=== PATIENT | male | born 1990 | race Two or more races ===

== ENCOUNTER 2016-12-20 16:07 | Emergency (ER) | payer OTHER | END 2016-12-20 18:54 | disposition left against medical advice (07) | LOC: ER 18:44 | DX: S61.419A Laceration without foreign body of unspecified hand, initial encounter (principal); X58.XXXA Exposure to other specified factors, initial encounter; Y93.89 Activity, other specified; Y92.89 Other specified places as the place of occurrence of the external cause; Y99.8 Other external cause status ==

== ENCOUNTER 2023-08-14 16:07 | Emergency (ER) | payer SELFPAY ==
[~2023-08-14] VITALS: Ht 167.6 cm; Wt 84.0 kg
[2023-08-14 16:31] VITALS: BP 129/80; PULSE 110; RESP 16; TEMP 98.6; O2SAT 99
== END 2023-08-14 18:51 | disposition left against medical advice (07) ==
LOC: ER 16:07
DX: Z53.21 Procedure and treatment not carried out due to patient leaving prior to being seen by health care provider (principal)
CPT/HCPCS: 71045; 99281